=== PATIENT | female | born 1975 | race Caucasian/White ===

== ENCOUNTER 2022-06-10 12:03 | Outpatient (CLI) | payer OTHER, SELFPAY ==
--- NOTE | 2022-06-10 13:35 | W.ANESCHARGE ---
Anesthesia Charges Start Date/Time Anesthesia Start Date: 06/10/22 Anesthesia Start Time: 12:45 Stop Date/Time Anesthesia Stop Date: 06/10/22 Anesthesia Stop Time: 13:30 Summary Emergency: No
--- NOTE | 2022-06-10 13:44 | W.ANESCHARGE ---
Anesthesia Charges Start Date/Time Anesthesia Start Date: 06/10/22 Anesthesia Start Time: 12:45 Stop Date/Time Anesthesia Stop Date: 06/10/22 Anesthesia Stop Time: 13:30 Summary Emergency: No
== END 2022-06-10 12:04 | disposition home or self-care (01) ==
LOC: OP CLINIC 12:04
PROVIDERS: PCP Family Medicine; Visit Provider Surgery
DX: R19.5 Other fecal abnormalities (principal); K63.5 Polyp of colon; K57.30 Diverticulosis of large intestine without perforation or abscess without bleeding
CPT/HCPCS: 00811; 00812; 45385; 88305

== ENCOUNTER 2023-03-09 07:54 | Outpatient (CLI) | payer OTHER, SELFPAY ==
--- NOTE | 2023-03-09 08:15 | CRLHL7_ITS ---
For Patients: As a result of the Century Cures Act, medical imaging exams and procedure reports are released immediately into your electronic medical record. You may view this report before your referring provider. If you have questions, please contact your health care provider. BILATERAL SCREENING MAMMOGRAM WITH COMPUTER-AIDED DETECTION AND TOMOSYNTHESIS TECHNIQUE: CC and MLO views were obtained. These mammographic images have been obtained using full-field digital technique. These mammographic images were interpreted with the benefit of computer-aided detection. Breast Tomosynthesis was used in this interpretation. COMPARISON FILM: 01/30/22, 12/31/20, 10/19/19. FINDINGS: The breasts are heterogeneously dense, which may obscure small masses IMPRESSION: There is no radiographic evidence for malignancy. ASSESSMENT: BI-RADS Category 1: Negative RECOMMENDATION: Routine screening mammogram in 1 year. A lay language report of this examination will be provided to the patient. Juan Lr M.D. Diagnostic Radiologist [email or web address] NADIR/west Transcribed: 2:59 p.mMike dodson/Dictated by: Juan Lr MD @ 03/09/2023 8:54:00 AM (Electronically Signed)
== END 2023-03-09 07:55 | disposition home or self-care (01) ==
LOC: MAMMO 07:55
PROVIDERS: PCP Family Medicine; Visit Provider Obstetrics & Gynecology
DX: Z12.31 Encounter for screening mammogram for malignant neoplasm of breast (principal); R92.2 Inconclusive mammogram
CPT/HCPCS: 77063; 77067; 84443

== ENCOUNTER 2024-03-24 09:32 | Outpatient (CLI) | payer OTHER, SELFPAY ==
--- NOTE | 2024-03-24 10:15 | CRLHL7_ITS ---
For Patients: As a result of the Century Cures Act, medical imaging exams and procedure reports are released immediately into your electronic medical record. You may view this report before your referring provider. If you have questions, please contact your health care provider. BILATERAL SCREENING MAMMOGRAM WITH COMPUTER-AIDED DETECTION AND TOMOSYNTHESIS TECHNIQUE: CC and MLO views were obtained. These mammographic images have been obtained using full-field digital technique. These mammographic images were interpreted with the benefit of computer-aided detection. Breast tomosynthesis was used in this interpretation. COMPARISON FILM: 03/09/23, 01/30/22, 12/31/20. FINDINGS: The breasts are heterogeneously dense, which may obscure small masses. IMPRESSION: There is no radiographic evidence for malignancy. ASSESSMENT: BI-RADS Category 2: Benign RECOMMENDATION: Routine screening mammogram in 1 year. A lay language report of this examination will be provided to the patient. JUAN SHIRLEY M.D. Diagnostic Radiologist [email or web address] Transcribed: 2:[address]/Dictated by: Juan Shirley MD @ 03/24/2024 11:11:00 AM (Electronically Signed)
== END 2024-03-24 09:33 | disposition home or self-care (01) ==
LOC: MAMMO 09:33
PROVIDERS: PCP Family Medicine; Visit Provider Obstetrics & Gynecology
DX: Z12.31 Encounter for screening mammogram for malignant neoplasm of breast (principal); R92.2 Inconclusive mammogram
CPT/HCPCS: 77063; 77067

== ENCOUNTER 2025-05-22 10:13 | Outpatient (CLI) | payer BC, SELFPAY ==
--- NOTE | 2025-05-22 10:45 | CRLHL7_ITS ---
For Patients: As a result of the Century Cures Act, medical imaging exams and procedure reports are released immediately into your electronic medical record. You may view this report before your referring provider. If you have questions, please contact your health care provider. INDICATION: BILATERAL SCREENING MAMMOGRAM, ASYMPTOMATIC 50 Y/O FEMALE COMPARISON: 03/24/2024, 03/09/2023, 01/30/2022 TECHNIQUE: Digital mammogram in CC and MLO projections including computer-aided detection (CAD) and tomosynthesis. BREAST COMPOSITION: The breasts are heterogeneously dense, which may obscure small masses. FINDINGS: No suspicious findings. ASSESSMENT: BI-RADS 1 Negative RECOMMENDATION: Annual screening mammogram. A lay language report of this examination will be provided to the patient. Dictated by: Taisha Quevedo MD @ 05/24/2025 09:17:25 (Electronically Signed)
== END 2025-05-22 10:14 | disposition home or self-care (01) ==
PROVIDERS: PCP Family Medicine; Visit Provider Obstetrics & Gynecology
DX: Z12.31 Encounter for screening mammogram for malignant neoplasm of breast (principal); R92.333 Mammographic heterogeneous density, bilateral breasts
CPT/HCPCS: 77063; 77067